=== PATIENT | male | born 1945 | race Caucasian/White ===

== ENCOUNTER → 2017-07-13 | Outpatient (CLI) | payer OTHER ==
[~2017-07-13] MED LIST: ASPIR 8181 MG PO; CIALIS10 MG PO; COMBIGAN EYE DR10 ML OPHTHALMIC; IBUPROFEN 200200 M1 PO; LIPITOR40 MG PO; METFORMIN HCL500 MG PO; NORCO 10-325 T1 EACH PO; PERCOCET 10-321 EACH PO; PRILOSEC 20 MG20 MG PO; VITAMIN D2000 UNIT PO; XALATAN2.5 M1 OPHTHALMIC; XARELTO10 MG PO
== END ==
LOC: MRI 05:40
DX: M47.896 Other spondylosis, lumbar region (principal); M48.07 Spinal stenosis, lumbosacral region; G89.29 Other chronic pain; M51.26 Other intervertebral disc displacement, lumbar region; M77.8 Other enthesopathies, not elsewhere classified; M46.06 Spinal enthesopathy, lumbar region; M54.16 Radiculopathy, lumbar region; M40.46 Postural lordosis, lumbar region

== ENCOUNTER 2019-12-14 07:27 | Inpatient (IN) | payer OTHER ==
[2019-12-11 11:08] LABS: HEMOGLOBIN 12.4 gm/dL (14.0-18.0); MCHC 32.6 g/dL (28.0-37.0); MCV 79.6 fL (80.0-100.0); RBC 4.77 mil/uL (4.50-6.00); RDW 16.9 % (10.5-14.5); WBC 7.1 thou/uL (4.0-11.0)
[2019-12-11 11:10] LABS: URINE BILIRUBIN NEGATIVE (Negative); URINE BLOOD NEGATIVE (Negative); URINE CLARITY CLEAR; URINE COLOR YELLOW; URINE GLUCOSE-RANDOM* 1+ (Negative); URINE KETONES NEGATIVE (Negative); URINE LEUKOCYTES-REFLEX NEGATIVE (Negative); URINE NITRITE-REFLEX NEGATIVE (Negative); URINE PROTEIN (DIPSTICK) NEGATIVE (Negative); URINE SPECIFIC GRAVITY 1.025 (1.005-1.035); URINE UROBILINOGEN 0.2 E.U./dl (0.2-1.0)
[2019-12-11 11:14] LABS: INR 1.1; PROTIME 11.2 Seconds (9.3-11.4)
[2019-12-11 11:23] LABS: ALBUMIN 3.6 g/dL (3.4-5.0); CALCIUM 8.6 mg/dL (8.5-10.1); POTASSIUM 4.5 mmol/L (3.5-5.1)
--- NOTE | 2019-12-11 12:13 | EKG ---
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 <ELECTRONICALLY SIGNED> By: Tres Russell MD, FACC 12/11/19 1213 1057 1057 Tres Russell MD, FACC /EPI
[2019-12-12 02:06] LABS: GLYCOHEMOGLOBIN (HGB A1C) 7.1 % (4.8-5.6)
[~2019-12-14] VITALS: Ht 180.3 cm; Wt 84.4 kg
--- NOTE | ~2019-12-14 | D ---
[facility] [place] [address] DISCHARGE SUMMARY Name: SEBASTIÁN MORA Room #: 446-P ADM IN M.R.#: [id number] Admission: 12/14/19 Attend Phys: Omari Rosas MD Discharge: Date of : 47 Report #: [id number] THIS REPORT FOR: cc: Omari Miramontes MD Physician not on staff Omari Rosas MD ~ THIS REPORT FOR: //name// CC: Omari Goyal Physician staff DATE OF SERVICE: 12/16/2019 FINAL DIAGNOSES: Failed right total hip arthroplasty, type 2 diabetes, hypertension, chronic pain syndrome. OPERATION PROCEDURES: Revision of right total hip arthroplasty. HISTORY OF PRESENT ILLNESS: This active and fit 74-year-old gentleman underwent right hip replacement about 5 years ago. Since then, he has had persistent thigh pain which has required regular narcotic medications for control. 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 There is no evidence of infection. He has no other significant major medical problems. We have elected to proceed with revision surgery to replace and revise the femoral stem hoping for some symptomatic benefit. HOSPITAL COURSE: The patient was admitted and taken to the operating room on 12/14/2019. He underwent a revision right hip arthroplasty with removal of the previous stem and replacement with a larger, much tighter fitting femoral stem. He tolerated this well. Postoperatively, his course has been largely unremarkable. His hemoglobin and lab studies have been stable. He has been able to resume a regular diet. He has had occasional minor temperature elevation, but this seems to be resolving. His chronic pain is at this point well controlled on oxycodone oral medications. He has continued on his other routine medications and seems to be having no problems. He states he is feeling safe and comfortable and would like to proceed with discharge today pending his clearance from physical therapy today. DISCHARGE MEDICATIONS: Include Xarelto 10 mg daily, Percocet 10 mg q.4-6 hours p.r.n. for pain, hydrocodone 10 mg q.6 hours p.r.n. for more gvga-wx-uhcybraf pain, vitamin D 2000 units daily, Prilosec 20 mg daily, Lipitor 40 mg twice daily, metformin 1000 mg b.i.d., Cialis 10 mg p.r.n., gabapentin 600 mg b.i.d. He will continue careful moderate activity at home, using a walker for balance [address] [address] DISCHARGE SUMMARY Name: SEBASTIÁN MORA Room #: 446-P [facility] IN M.R.#: [id number] Admission: 12/14/19 Attend Phys: Omari Rosas MD Discharge: Date of : 47 Report #: [id number] and safe ambulation. I have asked him to call me should there be any problems or questions. I will plan to see him back in my office in 1 week for followup and in 2 weeks for suture removal. By: 0929 0947 Omari Rosas MD /nt
[~2019-12-14 07:27] MED LIST changes: +DULOXETINE HCL40 MG PO; +FLOMAX0.4 MG PO; +GABAPENTIN600 M1 PO
[2019-12-14 08:59] VITALS: BP 147/84
[2019-12-14 14:05] VITALS: BP 124/80
[2019-12-14 15:50] VITALS: BP 120/74
--- NOTE | 2019-12-14 18:43 | NUR ---
PATIENT ADMITTED FROM OR WITH REVISION RIGHT TOTAL HIP AREA, SHERRY DRESSING IN PLACE, THIGH HIGH CRYSTAL HOSE, SCD'S, ICE PACK IN PLACE. RIGHT WRIST IV IN PLACE, 1/2 NS AT 100CC/HR STARTED. HEMOVAC IN PLACE EMPTIED 200CC. NO C/O NAUSEA, DIET ADVANCED TO REGULAR. PATIENT C/O PAIN WITH RIGHT HIP AREA, FENTANYL 50MCG IV GIVEN DURING ADMISSION. ADMISSION COMPLETED REPORT GIVEN TO KAYLEIGH/FRANCISCA. PATIENT UP WITH ASSIST X 1 TO BSC X 3 TIMES.
[2019-12-14 19:39] VITALS: BP 124/82
--- NOTE | 2019-12-15 02:40 | NUR ---
PT CARE ASSUMED WITH PT IN BED WATCHING TV.PT IS A/O X4.PT HAD A RT TOTAL HIP REPLACEMENT.PT HAS A SHERRY DRESSING AND HEMOVAC AND ICE PACK.PAIN MANAGED WITH OXYCODONE WITH RELIEF.PT IS ACCUCHECK ACHS WITH LOW DOSE SSI.WILL CONTINUE TO MONITOR
[2019-12-15 04:15] VITALS: BP 131/77
[2019-12-15 06:05] LABS: BASOPHILS 0.1 % (0.0-2.0); HEMATOCRIT 32.5 % (42.0-52.0); HEMOGLOBIN 10.4 gm/dL (14.0-18.0); LYMPHOCYTES 8.6 % (24.0-44.0); MCH 25.7 pg (26.0-34.0); MCHC 32.1 g/dL (28.0-37.0); MONOCYTES 9.4 % (1.0-8.0); PLATELET COUNT 290 thou/uL (150-400); POLYS 81.9 % (36.0-66.0); RBC 4.06 mil/uL (4.50-6.00); RDW 16.7 % (10.5-14.5); WBC 13.5 thou/uL (4.0-11.0)
[2019-12-15 06:24] LABS: CALCIUM 8.3 mg/dL (8.5-10.1); MAGNESIUM 1.8 mg/dL (1.8-2.4); POTASSIUM 4.3 mmol/L (3.5-5.1)
[2019-12-15 07:43] VITALS: BP 131/82
--- NOTE | 2019-12-15 09:40 | NUR ---
ASSESSMENT: CM REVIEWED CHART AND MET WITH PATIENT AT THE BEDSIDE. PT IS ALERT AND ORIENTED X4. PT IS HERE S/P RIGHT HIP REVISION. PT REPORTS LIVING IN A HOME AND REPORTS THAT KARIN WILL BE STAYNIG WITH HIM. PT REPORTS HAVING TWO STEPS TO ENTER THE HOME AND REPORTS HE HAS ALL HE NEEDS ON THE MAIN LEVEL. PT REPORTS HE DOES HAVE A BASEMENT AND UPSTAIRS LEVEL BUT REPORTS THAT HE DOES NOT NEED TO GO UP THERE. PT REPORTS THAT HE DID HAVE A WALKER AT HOME BUT LOANED IT TO SOMEONE AND NEVER GOT IT BACK. HE IS WONDERING IF HE CAN GET ANOTHER ONE AND HAS NO PREFERENCE OF [employer]. CM NOTIFIED [employer]ER [employer] TO VERIFY IF HE IS ELIGIBILE FOR ANOTHER ONE. PT REPORTS POSSIBLY WANTING HH AT DISCHARGE AND REPORTS HE HAD BEEN TALKING WITH [facility] AND REQUEST A REFERRAL THERE. CM FAXED REFERRAL AND AWAITING TO SEE HOW PATIENT DOES WITH THERAPY. CM WILL CONTINUE TO FOLLOW TO ASSIST NEEDED.
--- NOTE | 2019-12-15 11:33 | O ---
[facility] [place] [address] OPERATIVE REPORT Name: SEBASTIÁN MORA Room #: 446-P ADM IN M.R.#: [id number] Admission: 12/14/19 Attend Phys: Omari Rosas MD Discharge: Date of : 47 Report #: [id number] THIS REPORT FOR: cc: Omari Miramontes MD Physician not on staff Omari Rosas MD ~ CC: Omari Goyal Physician staff DATE OF SERVICE: 12/14/2019 PREOPERATIVE DIAGNOSIS: Painful loosened right total hip arthroplasty. POSTOPERATIVE DIAGNOSIS: Painful loosened right total hip arthroplasty. PROCEDURE: Revision of right total hip arthroplasty. SURGEON: Omari Rosas MD INDICATIONS: This healthy, active 74-year-old gentleman underwent right hip replacement about 5 years ago. He has done generally well, but has a persistent sense of thigh pain, which is aggravated by activity and prolonged weightbearing. He has been evaluated extensively and there has been no evidence of infection, but my clinical impression is that the femoral stem is slightly undersized and therefore, there is some micromotion causing his persistent thigh pain. His symptoms have been severe enough that he is required fairly regular ongoing narcotic pain medication. Given this, we have elected to go ahead with revision surgery planning to revise the femoral stem only. DESCRIPTION OF PROCEDURE: The patient was taken to the operating room where he was placed under general anesthesia. Prophylactic intravenous antibiotics were administered. He was turned to the left lateral decubitus position. The right hip, thigh and leg were meticulously prepped and draped. A skin incision was made through the old surgical scar and extended along the posterior aspect of the hip joint. The capsule and short external rotators were identified. There was a small opening into the joint and there was a small amount of serous fluid. Sample was sent to the lab for Gram stain and culture. The Gram stain revealed only a few white cells and no organisms. There was really no suggestion that there was a problem with infection and so we elected to go ahead with the planned joint revision. The capsule was further opened and preserved. The hip was then dislocated posteriorly. The head was removed and the stem was well visualized. There was some bony overgrowth over the top of the stem, which required debridement to using osteotomes and rongeurs. Once good exposure was established, flexible osteotomes were used to extend down along the anterior and [address] [address] OPERATIVE REPORT Name: ABBYSEBASTIÁN Room #: 446-P [facility] IN ..#: [id number] Admission: 12/14/19 Attend Phys: Omari Rosas MD Discharge: Date of : 47 Report #: [id number] posterior aspect of the stem. The stem did not appear to be grossly loose. A clamp was placed on the stem and it was tested. There was no gross motion; however, after working for a few minutes, it became apparent that I could move the stem slightly and after some further debridement and careful attention, I was able to extract the stem. There was only a small amount of cancellous bone adherent to the lateral shoulder of the implant. The canal was inspected and found to be intact. There was no evidence of fractures. The canal was thoroughly irrigated and inspected and no other abnormalities were identified. The previous hip was a [place] using a Secur-Fit size 9 femoral stem, given the clinical findings and the preoperative x-rays, I felt that I could probably advance to either a 10 or 11 stem. The canal was opened with reamers and broaches advancing this in a moderate fashion until there was excellent purchase on the cortical rim. It seemed that a size 11 stem fit most appropriately. The broach was inserted and a trial reduction was performed and it seemed that the hip would be nicely reconstituted with the new size 11 broach and once again a +2.5 mm neck length. Intraoperative x-rays were obtained with a broach in the canal and this seemed to fill the canal nicely and seemed to have excellent alignment. The trial broach was removed and a new [place] Secur-Fit stem was selected using the size 11 and 132 degree neck angle. This new component was then impacted in the canal, positioning this in about 15 degrees of anteversion. It seated quite nicely and appeared to be very secure and tight without any signs of loosening. After another trial reduction, I felt that the +2.5 mm neck length was most appropriate. A new Biolox 36 mm diameter head with a +2.5 mm neck length was selected. This was impacted on to the Carr taper and the hip was once again reduced. Once again alignment, range of motion, stability and leg length were assessed and felt to be satisfactory. Again, a new x-ray in the operating room was obtained demonstrating the position of the hip and the stem in the canal. This looks quite satisfactory and the new stem seemed to fill the canal quite nicely with excellent purchase. No other problems were identified. At this point, the wound was copiously irrigated. Good hemostasis was confirmed. The capsule was repaired with several #1 Vicryl sutures. A single Hemovac was left in the wound exiting through a separate stab incision. The fascia was closed with multiple #1 Vicryl. The subcutaneous tissues were closed with 0 Monocryl. The skin was closed with skin justice. The patient was awakened and returned to recovery room in good condition. <ELECTRONICALLY SIGNED> By: Omari Rosas MD 12/15/19 1133 1211 1235 Omari Rosas MD /nt
--- NOTE | 2019-12-15 13:44 | NUR ---
on-going assessment: CM REVIEWED CHART. PT IS CONTINUING TO WORK WITH THERAPIES AND IS A POSSIBLE DISCHARGE TOMORROW PENDING PROGRESS. PT REPORTS HE WOULD LIKELY LIKE HOME HEALTH AT DISCHARGE (REFERRAL SENT TO [facility] PER HIS REQUEST). [facility] CAN ACCEPT PATIENT IF HE IS NEEDING HH AT DISCHARGE AND WILL NEED TO BE CONTACTED AT:[phone] AND DISCHARGE ORDERS/DUMMARY FAXED TO: [phone]. PATIENT ALSO NEEDING A WALKER AT DISCHARGE AND HAD NO PREFERENCE OF DME COMPANY. PROVIDER [employer] IS ABLE TO SUPPLY PT WITH WALKER AND WILL HAVE IT AT HIS BEDSIDE FOR THE TIME OF DISCHARGE.
[2019-12-15 13:46] VITALS: BP 131/82
--- NOTE | 2019-12-15 14:14 | NUR ---
PT ASSESSED AT START OF SHIFT. PT DOING WELL. UP IN THE CHAIR. AMBULATED W/ THERAPY AND DID WELL. PAIN HELPED W/ MEDS. EATING AND DRINKING WELL. RT HIP DSNG DRY. ICE PACK.
[2019-12-15 15:44] VITALS: BP 134/56
--- NOTE | 2019-12-15 17:12 | NUR ---
DISCONTINUED HEMO VAC DRAIN WILL MIN DISCOMFORT TO PATIENT. 10CC IN HEMOVAC
[2019-12-15 22:52] VITALS: BP 104/66
[2019-12-16 06:12] LABS: HEMATOCRIT 27.6 % (42.0-52.0); HEMOGLOBIN 8.9 gm/dL (14.0-18.0); MCH 25.4 pg (26.0-34.0); MCHC 32.1 g/dL (28.0-37.0); RBC 3.5 mil/uL (4.50-6.00); RDW 16.9 % (10.5-14.5); WBC 11.3 thou/uL (4.0-11.0)
[2019-12-16 08:14] VITALS: BP 115/73
[2019-12-16] MEDS ORDERED: PERCOCET 10-321 EACH PO (09:20)
[2019-12-16] MEDS ORDERED: XARELTO10 MG PO (09:22)
--- NOTE | 2019-12-16 10:19 | NUR ---
Assumed care of pt at 0700. Pt c/o rt hip pain. Prn pain med administered. SBA with walker and gait-belt. Pt worked with physical therapy. Dressing c/d/i. No fever. Call light within reach. Fall precautions in place.
[2019-12-16 10:51] VITALS: BP 131/82
--- NOTE | 2019-12-16 12:16 | NUR ---
PT DISCHARGING TODAY TO HOME WITH [facility] FAXED DC ORDERS/SUMMRY RECEIVED CONFIRMATION SPOKE WITH KARLA AT [facility] THEY WILL CALL PT TO ARRANGE VISITS.
== END 2019-12-16 12:30 | disposition home health service (06) | DRG 468 ==
LOC: PRE 07:27 → TBA 07:56 → 4S 07:56 → PRE 10:12 → 4S 14:02
PROVIDERS: Nurse Practitioner; ADMIT Orthopaedic Surgery; ATTEND Orthopaedic Surgery
PROC: 0SRR0JZ Replacement of Right Hip Joint, Femoral Surface with Synthetic Substitute, Open Approach (ICD-10-PCS; principal; 2019-12-14)
PROC: 0SPR0JZ Removal of Synthetic Substitute from Right Hip Joint, Femoral Surface, Open Approach (ICD-10-PCS; principal; 2019-12-14)
DX: T84.030A Mechanical loosening of internal right hip prosthetic joint, initial encounter (principal); E11.9 Type 2 diabetes mellitus without complications; I10 Essential (primary) hypertension; G89.4 Chronic pain syndrome; N40.0 Benign prostatic hyperplasia without lower urinary tract symptoms; K21.9 Gastro-esophageal reflux disease without esophagitis; Z96.652 Presence of left artificial knee joint; M16.11 Unilateral primary osteoarthritis, right hip; Z20.828 Contact with and (suspected) exposure to other viral communicable diseases; Y83.8 Other surgical procedures as the cause of abnormal reaction of the patient, or of later complication, without mention of misadventure at the time of the procedure; Z87.442 Personal history of urinary calculi; Y92.89 Other specified places as the place of occurrence of the external cause; Z79.899 Other long term (current) drug therapy
CPT/HCPCS: 10102; 50010; 50101; 50382; 50414; 50740; 51412; 53000; 56525; 57095; 57103; 57116; 62110; 62900; 70005